=== PATIENT | female | born 1995 | race Caucasian/White ===

== ENCOUNTER 2017-06-11 23:05 | Emergency (ER) | payer BC, OTHER ==
[2017-06-11 23:14] VITALS: O2SAT 98
[2017-06-11] MEDS ORDERED: ALBUTEROL 3 ML DEYVIAL IH ONE (23:23)
--- NOTE | 2017-06-11 23:27 | EDPHY ---
H & P Time Seen by Provider: 06/11/17 23:19 HPI/ROS: CHIEF COMPLAINT: Cough, fever HISTORY OF PRESENT ILLNESS: 22-year-old female presents to the emergency department by private vehicle with cough and fever that began 2 weeks ago. Patient states that she has had intermittent fevers and chills. She did not receive a flu shot this year. She denies feeling short of breath. She states her cough is productive in nature. No history of asthma. No known ill contacts. No recent travel. She feels that her symptoms are getting worse. Denies vomiting or diarrhea. Denies abdominal pain. Denies neck or back pain. No history of previous pneumonia or bronchitis. Nonsmoker. The patient has a history of subjective fevers and chills. She took 600 mg of ibuprofen prior to arrival. REVIEW OF SYSTEMS: Constitutional: Subjective fevers, chills Eyes: No double or blurry vision. ENT: No sore throat. Respiratory: Cough, no shortness of breath. Cardiac: No chest pain. Gastrointestinal: No abdominal pain, vomiting or diarrhea. Genitourinary: No dysuria. Musculoskeletal: No neck or back pain. Skin: No rashes. Neurological: No headache. Past Medical/Surgical History: Negative Social History: [employer] student Smoking Status: Never smoked Physical Exam: General Appearance: Alert, no distress. 36.8 temperature, 98% on room air. No respiratory distress. Eyes: Pupils equal and round. Extraocular motions are all intact. ENT: Mouth: Mucous membranes moist. Respiratory: Occasional expiratory rhonchi. No crackles or rales. No respiratory distress. She is actively coughing. Cardiovascular: Regular rate and rhythm. Gastrointestinal: Abdomen is soft and nontender, no masses, no rebound or guarding, bowel sounds normal. Neurological: Alert and oriented x 3, cranial nerves II through XII grossly intact Skin: Warm and dry, no rashes. Musculoskeletal: Nontender to palpate along the cervical, thoracic or lumbar spine. Neck is supple. Extremities: Full range of motion and no peripheral edema. Psychiatric: Patient is oriented X 3, there is no agitation. Constitutional: Initial Vital Signs Temperature (C) 36.8 C 06/11/17 23:09 Heart Rate 88 06/11/17 23:09 Respiratory Rate 18 06/11/17 23:09 Blood Pressure 134/75 H 06/11/17 23:09 O2 Sat (%) 98 06/11/17 23:09 O2 Delivery Mode Room Air Allergies/Adverse Reactions: No Known Allergies Allergy (Unverified 06/11/17 23:11) Home Medications: Medication Instructions Recorded Bcp 06/11/17 predniSONE 60 mg PO DAILY 4 Days tab 06/11/17 Medical Decision Making - Diagnostics Imaging Results: Imaging Impressions Chest X-Ray 06/11/17 23:55 Impression: Minimal left basilar atelectasis. Imaging: I viewed and interpreted images myself ED Course/Re-evaluation: 22-year-old female presents to the emergency department with cough and subjective fevers for last 2 weeks. Patient did not receive a flu shot this year. She is a nonsmoker. No history of asthma. No recent travel or known ill contacts. I did explain to the patient that her symptoms could have been triggered by influenza or possibly RSV. Patient however has been sick for 2 weeks. I do not think testing is indicated. She is not around any small children. Patient received albuterol nebulizer and was feeling a bit better. She did have a chest x-ray which revealed no evidence of obvious pneumonia. Patient will be treated with prednisone and albuterol inhaler. She was encouraged to return if she developed fever, difficulty breathing, pain in her chest, or if she felt worse in any way. Differential Diagnosis: Including but not limited to bronchitis, pneumonia, influenza, viral upper respiratory infection, RSV - Data Points Medications Given: Discontinued Medications Albuterol (Proventil Neb) 3 ml IH EDNOW ONE Stop: 06/11/17 23:24 Last Admin: 06/11/17 23:27 Dose: 3 ml Albuterol Sulfate (Proventil Inh Prepack) 1 mdi TAKEHOME EDNOW ONE Stop: 06/11/17 23:52 Last Admin: 06/12/17 00:36 Dose: 1 mdi Prednisone (Prednisone) 60 mg PO EDNOW ONE Stop: 06/11/17 23:53 Last Admin: 06/12/17 00:36 Dose: 60 mg Departure - Departure Disposition: Home, Routine, Self-Care Clinical Impression: Bronchitis Condition: Good Instructions: Acute Bronchitis (ED) Additional Instructions: Albuterol inhaler 2 puffs every 4 hr for 1 week and then as needed. Prednisone 60 mg daily for 5 days. Return to the emergency department if you develop a fever, if you feel short of breath, or if you feel worse in any way. Referrals: Sarah Griffith MD [Medical Doctor] - As per Instructions (Primary care provider recreation technician) Prescriptions: predniSONE 60 mg PO DAILY 4 Days tab
[2017-06-11] MEDS ORDERED: ALBUTEROL INH PREPACK MDI TAKEHOME ONE (23:51)
[2017-06-11] MEDS ORDERED: predniSONE 20 MG TAB PO ONE (23:52)
[2017-06-12 00:46] VITALS: BP 128/78; PULSE 85; RESP 16; TEMP 98.4
== END 2017-06-12 00:44 | disposition home or self-care (01) ==
DX: J40 Bronchitis, not specified as acute or chronic (principal)
CPT/HCPCS: J7512; J7613